=== PATIENT | male | born 1995 | race Caucasian/White ===

== ENCOUNTER → 2023-04-22 | Outpatient (REF) | payer OTHER ==
[2023-04-22 17:31] LABS: MONO REFLEX EBV COMP NEGATIVE (NEGATIVE)
[2023-04-24 14:11] LABS: EBV AB TO NUCLEAR ANTIGEN >600.0 U/mL (0.0-17.9); EBV VIRAL CAPSID AG IgM <36.0 U/mL (0.0-35.9)
== END ==
LOC: M LAB REF 16:42
PROVIDERS: ATTEND Internal Medicine
DX: J02.9 Acute pharyngitis, unspecified (principal)